=== PATIENT | male | born 1935 | race Caucasian/White ===

== ENCOUNTER 2017-08-15 19:31 | Emergency (ER) | payer OTHER ==
--- NOTE | 2017-08-15 19:37 | PDOC ---
History of Present Illness - General Chief Complaint: Pain Stated Complaint: ABDOMINAL PAIN Time Seen by Provider: 08/15/17 19:35 Past History - Past Medical History Allergies/Adverse Reactions: Allergies Allergy/AdvReac Type Severity Reaction Status Date / Time No Known Allergies Allergy Verified 03/26/14 01:36 Home Medications: Ambulatory Orders Albuterol Sulfate [Proair Hfa -] 1 - 2 inh PO QID PRN 03/26/14 Budesonide/Formeterol Fumarate [SYMBICORT 160/4.5mcg -] 2 inh PO BID 03/26/14 Cetirizine HCl [Zyrtec] 10 mg PO HS 03/26/14 Multivitamin [Multiple Vitamins] 1 each PO DAILY 03/26/14 [place]-3 Acid Ethyl Esters [Lovaza -] 2,000 mg PO BID 03/26/14 Omeprazole [Prilosec (RX)] 20 mg PO DAILY 03/26/14 Tamsulosin HCl [Flomax -] 0.4 mg PO DAILY 03/26/14 Tiotropium [place] [Spiriva] 1 inh PO DAILY 03/26/14 Cefpodoxime Proxetil [Vantin (Nf) -] 100 mg PO BID #14 tablet 03/30/14 Risperidone [Risperdal -] 2 mg PO Q12H PRN #14 tablet 03/30/14 Warfarin Sodium [Coumadin] 5 mg PO DAILY #3 tablet 03/30/14 Cardiac Disorders: Yes COPD: Yes HTN: Yes Hypercholesterolemia: Yes - Psycho/Social/Smoking Cessation Hx Suicidal Ideation: No Smoking History: Never smoked Have you smoked in the past 12 months: No Hx Alcohol Use: No Drug/Substance Use Hx: No Substance Use Type: None Hx Substance Use Treatment: No
--- NOTE | 2017-08-15 19:39 | PDOC ---
Attending Attestation - Resident Resident Name: Pascual Chavarria - ED Attending Attestation I have performed the following: I have examined & evaluated the patient, The case was reviewed & discussed with the resident, I agree w/resident's findings & plan, Exceptions are as noted - HPI HPI: 08/15/17 19:38 81 yo male BIBA for abdominal pain several hours after eating a fish dinner prepared by his neighbor.No vomiting,no diarrhea.Pt is alert and Vietnamese speaking - Physicial Exam PE: 08/15/17 19:46 sl dishelved 81 yo male with c/o periumbilical pain HEENT pt is wearing dark glesses. discharge from rt eye,pupils are 2mm, reactive to light,nose no rhinorrhea neck supple, trachea midline [id number] lungs cta b/l abd mild periumbilcal tenderness to deep plapation,no rebound,no guarding extremities- FROM,no deformities - scattered plaque- like lesions with excoriated areas on extremities,lower back skin no edema neuro alert and conversant,moving all extremities - Medical Decision Making 08/16/17 00:02 Dr. Shah was initially concerned about this patient because he had extensive peripheral vascular disease and this is why he is on Coumadin. He was concerned about mesenteric ischemia and therefore CTA abdomen and pelvis was ordered. INR was 1.76 CBC is unremarkable, his kidney functions were within normal limits, glucose slightly elevated at 122. LFTs and lipase are unremarkable Patient reassessment-patient's pain resolved without any pain medication. He never had fever or chills or nausea or vomiting or diarrhea. CT scan abdomen and pelvis is negative for any mesenteric ischemia, no small bowel obstruction, no colitis, no free fluid and no free air. There was a normal appendix. Pain aorta, celiac artery, SMA, IM A and renal arteries. 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 Flow appears reconstituted more distally in right common femoral artery Unremarkable, pancreas Cystic foci bilateral kidneys. Incidental bone island L4 Cholecystectomy. Small right hepatic calcifications. 1.2 cm hypodensity, right inguinal subcutaneous tissues, possibly an epidermal cyst or other skin base lesion I spoke to Dr. Guerda Shah and he agreed the patient could be discharged home
--- NOTE | 2017-08-15 20:17 | PDOC ---
History of Present Illness - General Chief Complaint: Pain Stated Complaint: ABDOMINAL PAIN Time Seen by Provider: 08/15/17 19:35 History Source: Patient Exam Limitations: No Limitations, Language Barrier (Nurse and scribe helped with translation) - History of Present Illness Initial Comments: 08/15/17 20:05 The patient is an 81M with a PMH HTN, PVD, unsure of why he's on coumadin ( questionable PE), of who presents to the ED via EMS for abdominal pain. The patient states that his pain started 2 days ago, is periumbilical, does not radiate, and nothing makes it better or worse. He began complaining about his abdominal pain this morning to his aide who was making him food but the aide states that he does not think it is related to the food. Past History - Past Medical History Allergies/Adverse Reactions: Allergies Allergy/AdvReac Type Severity Reaction Status Date / Time No Known Allergies Allergy Verified 08/15/17 20:40 Home Medications: Ambulatory Orders Albuterol Sulfate [Proair Hfa -] 1 - 2 inh PO QID PRN 03/26/14 Budesonide/Formeterol Fumarate [SYMBICORT 160/4.5mcg -] 2 inh PO BID 03/26/14 Cetirizine HCl [Zyrtec] 10 mg PO HS 03/26/14 Multivitamin [Multiple Vitamins] 1 each PO DAILY 03/26/14 [place]-3 Acid Ethyl Esters [Lovaza -] 2,000 mg PO BID 03/26/14 Omeprazole [Prilosec (RX)] 20 mg PO DAILY 03/26/14 Tamsulosin HCl [Flomax -] 0.4 mg PO DAILY 03/26/14 Tiotropium [place] [Spiriva] 1 inh PO DAILY 03/26/14 Cefpodoxime Proxetil [Vantin (Nf) -] 100 mg PO BID #14 tablet 03/30/14 Risperidone [Risperdal -] 2 mg PO Q12H PRN #14 tablet 03/30/14 Warfarin Sodium [Coumadin] 5 mg PO DAILY #3 tablet 03/30/14 Unobtainable 08/15/17 Cardiac Disorders: Yes COPD: Yes HTN: Yes Hypercholesterolemia: Yes - Immunization History Immunization Up to Date: Yes - Psycho/Social/Smoking Cessation Hx Suicidal Ideation: No Smoking History: Never smoked Have you smoked in the past 12 months: No Information on smoking cessation initiated: No Hx Alcohol Use: No Drug/Substance Use Hx: No Substance Use Type: None Hx Substance Use Treatment: No Review of Systems - Review of Systems Able to Perform ROS?: Yes Is the patient limited Moroccan proficient: No Constitutional: No: Chills, Fever Respiratory: No: Shortness of Breath Cardiac (ROS): No: Chest Pain ABD/GI: No: Constipated, Diarrhea, Nausea, Vomiting : No: Burning, Dysuria, Discharge Integumentary: Yes: Lesions, Pruritus, Rash Neurological: No: Headache, Numbness, Tingling, Weakness *Physical Exam - Vital Signs Last Vital Signs Temp Pulse Resp BP Pulse Ox 98.0 F 89 16 163/66 100 08/15/17 20:00 08/15/17 20:00 08/15/17 20:00 08/15/17 20:00 08/15/17 20:00 - Physical Exam General Appearance: Yes: Nourished, Thin HEENT: positive: Normal Voice, Hearing Grossly Normal, Other (dry mucous membranes) Respiratory/Chest: positive: Lungs Clear, Normal Breath Sounds, Wheezing (upper respiratory; no lower respiratory wheezing). negative: Chest Tender, Respiratory Distress, Accessory Muscle Use, Labored Respiration Cardiovascular: positive: Regular Rhythm, Regular Rate, S1, S2. negative: Diastolic Murmur, Systolic Murmur Gastrointestinal/Abdominal: positive: Flat, Soft. negative: Tender, Decreased BS, Protuberent, Distended, Guarding, Rebound Musculoskeletal: negative: CVA Tenderness, CVA Tenderness (R), CVA Tenderness (L ) Extremity: negative: Swelling, Calf Tenderness Integumentary: positive: Dry, Warm, Rash (rash on back, excoriations, some healed; also on legs and upper back) Neurologic: positive: Normal Mood/Affect, Motor Strength 5/5 ED Treatment Course - LABORATORY CBC & Chemistry Diagram: 08/15/17 21:10 08/15/17 21:10 Medical Decision Making - Medical Decision Making 08/15/17 20:23 Patient is an 81M with a PMH PVD and HTN on coumadin for unknown reason who presents to the ED with complaints of abdominal pain. Paged Dr. Shah to discuss patient. His skin rash is eczema: workup at [facility]; atypical exzema 08/15/17 20:[address] Shah, he states that this patient has PVD and requests a CT angio of his abdomen, a guiac, and an INR. He also states that Dr. Das should see the patient if his pain continues. 08/15/17 23:53 Patient signed out to Dr. Damian.
[2017-08-15] MEDS ORDERED: SODIUM CHLORIDE 0.9% 1000 ML INFUS.BAG IV ONE ×2 (20:18→20:57)
[2017-08-15 21:21] LABS: BASOPHIL 0.8 % (0-2.0); EOSINOPHIL 1.9 % (0-4.5); MCH 29.7 pg (25.7-33.7); MCHC 33.8 g/dl (32.0-35.9); MEAN CELL VOLUME 87.9 fl (80-96); MEAN PLT VOLUME 10.1 fl (7.5-11.1); NEUTROPHILS 72.3 % (42.8-82.8); PLATELET COUNT 167 K/MM3 (134-434); RDW 15.3 % (11.9-15.9); WHITE BLOOD COUNT 9.9 K/mm3 (4.0-10.0)
[2017-08-15 21:37] VITALS: TEMP 98; BMI 23.3
[2017-08-15 21:47] LABS: INR 1.76 (0.82-1.09); PROTHROMBIN TIME (PATIENT) 19.6 SEC (9.98-11.88)
[2017-08-15 21:50] LABS: ACTIVATED PTT 33.5 SECONDS (26.9-34.4)
[2017-08-15 21:58] LABS: ALBUMIN 3.3 g/dl (3.4-5.0); ALK PHOS 91 U/L (45-117); ANION GAP 5 (8-16); BILIRUBIN,TOTAL 0.3 mg/dL (0.2-1.0); CALCIUM 8.9 mg/dL (8.5-10.1); CO2 25 mmol/L (21-32); CREATININE 0.8 mg/dL (0.7-1.3); GLUCOSE,RANDOM 122 mg/dL (74-106); SGPT/ALT 29 U/L (12-78); TOT PROT 6.5 g/dl (6.4-8.2)
[2017-08-15 21:59] LABS: SGOT/AST 29 U/L (15-37)
--- NOTE | 2017-08-16 00:10 | PDOC ---
*Physical Exam - Vital Signs Last Vital Signs Temp Pulse Resp BP Pulse Ox 98.0 F 89 16 163/66 100 08/15/17 20:00 08/15/17 20:00 08/15/17 20:00 08/15/17 20:00 08/15/17 20:00 ED Treatment Course - LABORATORY CBC & Chemistry Diagram: 08/15/17 21:10 08/15/17 21:10 - ADDITIONAL ORDERS Additional order review: Laboratory Results 08/15/17 08/15/17 21:10 21:10 PT with INR 19.60 H INR 1.76 H PTT (Actin FS) 33.5 Sodium 139 Potassium 4.3 Chloride 109 H Carbon Dioxide 25 Anion Gap 5 L BUN 19 H Creatinine 0.8 Creat Clearance w eGFR > 60 Random Glucose 122 H D Calcium 8.9 Total Bilirubin 0.3 AST 29 D ALT 29 D Alkaline Phosphatase 91 D Total Protein 6.5 D Albumin 3.3 L Lipase 162 08/15/17 21:10 RBC 4.95 D MCV 87.9 MCHC 33.8 RDW 15.3 MPV 10.1 Neutrophils % 72.3 Lymphocytes % 12.4 Monocytes % 12.6 H Eosinophils % 1.9 D Basophils % 0.8 - Medications Given in the ED: ED Medications Discontinued Medications Generic Name Dose Route Start Last Admin Trade Name Carlos Albertoq PRN Reason Stop Dose Admin Sodium Chloride 250 ml 08/15/17 20:18 08/15/17 21:22 Normal Saline - IV 08/15/17 20:19 Not Given ONCE ONE Sodium Chloride 500 ml 08/15/17 20:57 08/15/17 21:22 Normal Saline - IV 08/15/17 20:58 500 ml ONCE ONE Administration *DC/Admit/Observation/Transfer Diagnosis at time of Disposition: Abdominal pain Qualifiers: Abdominal location: periumbilical Qualified Code(s): R10.33 - Periumbilical pain - Discharge Dispostion Disposition: HOME Condition at time of disposition: Stable - Patient Instructions Printed Discharge Instructions: DI for Abdominal Pain-Adult Additional Instructions: Please follow up with Dr Shah this week Return to the emergency department for any worsening symptoms
[2017-08-16 01:22] VITALS: BP 140/79; PULSE 70
--- NOTE | 2017-08-16 13:55 | EKG ---
Test Reason : Blood Pressure : / mmHG Vent. Rate : 082 BPM Atrial Rate : 082 BPM P-R Int : 154 ms QRS Dur : 082 ms QT Int : 374 ms P-R-T Axes : 062 067 071 degrees QTc Int : 436 ms NORMAL SINUS RHYTHM NORMAL ECG WHEN COMPARED WITH ECG OF 28-MAR-2014 09:04, NO SIGNIFICANT CHANGE WAS FOUND Confirmed by NAT JONES MD ([id number]) on 08/16/2017 1:55:21 PM Referred By: Confirmed By:NAT JONES MD
== END 2017-08-16 01:27 | disposition home or self-care (01) ==
LOC: JER 19:31
DX: R10.33 Periumbilical pain (principal); L30.8 Other specified dermatitis; I10 Essential (primary) hypertension; I73.9 Peripheral vascular disease, unspecified; J44.9 Chronic obstructive pulmonary disease, unspecified; E78.00 Pure hypercholesterolemia, unspecified; Z79.01 Long term (current) use of anticoagulants
CPT/HCPCS: 36415; 74174-TC; 80053; 83690; 85025; 85610; 85730; 93005; 93010; 99282-25